=== PATIENT | female | born 1930 | race Caucasian/White ===

== ENCOUNTER 2021-04-01 10:15 | Emergency (ER) | payer OTHER ==
[~2021-04-01] VITALS: Ht 162.6 cm; Wt 100.0 kg
[2021-04-01] MEDS ORDERED: DIPH,PERTUSS(ACELL),TET VAC/PF 0.5 ML IM-VACC ONE (10:30)
[2021-04-01] MEDS ORDERED: SODIUM CHLORIDE FLUSH 10ML SYR IVF ONE (10:30)
[2021-04-01] MEDS ORDERED: CEFAZOLIN PMX 1GM/50ML 50 ML IVPB ONE (10:30)
[2021-04-01] MEDS ORDERED: MORPHINE SULFATE 4 MG/ML, 1ML IVPush PRN (10:30)
[2021-04-01] MEDS ORDERED: ONDANSETRON 2MG/ML, 2ML IVPush ONE (10:30)
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
[2021-04-01] MEDS ORDERED: LIDOCAINE-MPF 1%, 5ML ONE (10:46)
[2021-04-01] MEDS ORDERED: ONDANSETRON 2MG/ML, 2ML ONE (10:46)
[2021-04-01] MEDS ORDERED: MORPHINE SULFATE 4 MG/ML, 1ML ONE (10:47)
[2021-04-01] MEDS ORDERED: CEFAZOLIN PMX 1GM/50ML 50 ML ONE (10:47)
[2021-04-01] MEDS ORDERED: PLEASE ENTER ALLERGIES MC SCH (11:00)
[2021-04-01] MEDS ORDERED: LIDOCAINE 1%-EPI 1:100K, 20ML INFIL ONE (11:00)
--- NOTE | 2021-04-01 11:00 | NUR ---
pt medicated per emar. refused tetnus vacc. stating she had it last year. vss. pt to xray.
[2021-04-01 11:07] LABS: ALBUMIN 3.1 g/dL (3.4-5.0); ANION GAP 5 mmol/L (5-15); CALCIUM 9.4 mg/dL (8.5-10.1); CHLORIDE 110 mmol/L (98-107)
[2021-04-01 11:10] LABS: ALANINE AMINOTRANSFERASE 18 U/L (12-78); ALKALINE PHOSPHATASE 77 U/L (45-117); BILIRUBIN,TOTAL 0.9 mg/dL (0.2-1.0); CREATININE 0.83 mg/dL (0.55-1.02); TOTAL PROTEIN 6.7 g/dL (6.4-8.2)
[2021-04-01 11:11] LABS: BASOPHILS % (AUTO) 1 % (0-1); EOSINOPHILS % (AUTO) 2 % (1-7); LYMPHOCYTES % (AUTO) 23 % (22-44); MEAN CORPUSCULAR HEMOGLOBIN 30.5 pg (27.0-34.8); MEAN CORPUSCULAR HGB CONC 33.1 g/dL (32.4-35.8); MEAN PLATELET VOLUME 8.8 fL (7.4-10.4); MONOCYTES % (AUTO) 8 % (2-9); NEUTROPHILS % (AUTO) 66 % (42-75); PLATELET COUNT 202 x10^3/uL (130-400); RED BLOOD COUNT 4.84 x10^6/uL (3.82-5.3); RED CELL DISTRIBUTION WIDTH 13.9 % (9.6-15.2)
--- NOTE | 2021-04-01 11:32 | NUR ---
GONZALEZ SHAIKHN TO BEDSIDE FOR SUTURE
[2021-04-01] MEDS ORDERED: APIX5TAB PO (11:36)
[2021-04-01] MEDS ORDERED: SIMV10TA18 PO (11:36)
[2021-04-01] MEDS ORDERED: METO25TA91 PO (11:36)
[2021-04-01] MEDS ORDERED: LISI-170 PO (11:36)
[2021-04-01 12:18] VITALS: BP 155/82
--- NOTE | 2021-04-01 12:18 | NUR ---
PT FINISHING UP GETTING SUTURES. VSS. MOORE.
--- NOTE | 2021-04-01 13:05 | NUR ---
Patient AND Caregiver given discharge instructions and they have confirmed that they understand the instructions. Patient ambulatory with steady gait. NAD, all questions answered appropriately, denies additional needs at this time. No personal belongings left in room after discharge.
[2021-04-02] MEDS ORDERED: CEPH-376 PO (14:27)
== END 2021-04-01 13:06 | disposition home or self-care (01) ==
LOC: ED 12:50
DX: S51.812A Laceration without foreign body of left forearm, initial encounter (principal); Y93.89 Activity, other specified; W18.30XA Fall on same level, unspecified, initial encounter; Y92.009 Unspecified place in unspecified non-institutional (private) residence as the place of occurrence of the external cause; Y99.8 Other external cause status
CPT/HCPCS: 12005; 36415; 73090; 80053; 85025; 93005; 96365; 96375; 99285; J0690; J2270; J2405

== ENCOUNTER 2021-04-01 14:32 | Observation (INO) | payer OTHER ==
[~2021-04-01] VITALS: Ht 162.6 cm; Wt 86.2 kg
[~2021-04-01 14:32] MED LIST: APIX5TAB PO; LISI-170 PO; METO25TA91 PO; SIMV10TA18 PO
--- NOTE | 2021-04-01 15:06 | NUR ---
DR HARRIS AT BEDSIDE TO KELSI PT
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
[2021-04-01 15:27] LABS: BASOPHILS % (AUTO) 1 % (0-1); EOSINOPHILS % (AUTO) 0 % (1-7); LYMPHOCYTES % (AUTO) 21 % (22-44); MEAN CORPUSCULAR HEMOGLOBIN 30.4 pg (27.0-34.8); MEAN CORPUSCULAR HGB CONC 32.9 g/dL (32.4-35.8); MONOCYTES % (AUTO) 7 % (2-9); NEUTROPHILS % (AUTO) 71 % (42-75); PLATELET COUNT 214 x10^3/uL (130-400); RED BLOOD COUNT 4.59 x10^6/uL (3.82-5.3); RED CELL DISTRIBUTION WIDTH 13.7 % (9.6-15.2)
[2021-04-01] MEDS ORDERED: SODIUM CHLORIDE FLUSH 10ML SYR IVF ONE (15:30)
[2021-04-01] MEDS ORDERED: SODIUM CHLORIDE 0.9% 1,000ML IVBOLUS ONE (15:30)
[2021-04-01 15:38] LABS: ALANINE AMINOTRANSFERASE 16 U/L (12-78); ANION GAP 6 mmol/L (5-15); CALCIUM 9.1 mg/dL (8.5-10.1); CHLORIDE 110 mmol/L (98-107); CREATININE 1.05 mg/dL (0.55-1.02)
--- NOTE | 2021-04-01 15:39 | NUR ---
PT TO CT VIA [facility]
[2021-04-01 15:40] LABS: ALKALINE PHOSPHATASE 71 U/L (45-117); BILIRUBIN,TOTAL 0.7 mg/dL (0.2-1.0); TOTAL PROTEIN 6.3 g/dL (6.4-8.2)
--- NOTE | 2021-04-01 15:46 | NUR ---
PRIOR TO GOING TO CT, PT ASKING "WHAT CAUSES YOU TO...I CANT THINK OF THE WORD. WHEN YOU JUST GWEN FALL AGAINST THE WALL?" FRIEND IVETT STATES "SHE IS TALKING ABOUT VERTIGO. SHE HAS HAD THAT BEFORE." PT BELIEVES SHE MAY HAVE HAD VERTIGO PRIOR TO 1ST TIME HERE TODAY. DISCUSSED WITH DR HARRIS.
--- NOTE | 2021-04-01 15:54 | NUR ---
PT RETURN TO ROOM, CONT SB/SR PER PADILLAOR. IV INFUSING WITHOUT REDNESS/SWELLING. PT RE-WEIGHT ON BED SCALE. PT AWARE OF WAITING FOR TEST RESULTS.
[2021-04-01] MEDS ORDERED: SODIUM CHLORIDE FLUSH 10ML SYR IVF PRN (16:30)
--- NOTE | 2021-04-01 16:31 | NUR ---
PT STATES "FEELING BETTER" DR HARRIS AT BEDSIDE TO RE-EVAL PT. PT TO BE INPATIENT. PT AGREEABLE. WILL CALL PT ZAINAB HILL
--- NOTE | 2021-04-01 16:36 | NUR ---
RICK HILL [phone], IVETT (FAMILY FRIEND) [phone]
--- NOTE | 2021-04-01 16:58 | NUR ---
PT DESAT TO 88% IB SANJEEV PLACED ON 2L NC. SPOKE WITH GRANDDAUGHTER RICK, AWARE OF PT TO BE ADMITTED INPATIENT. PT HAS SOME DEMENTIA AND DOES "SEEM TO GET WORSE AT NIGHT" PER GRANDDAUGHTER "THE VERTIGO WAS SEVERAL YEARS AGO AND SHE SEEMS TO REVERT BACK TO IT" PER IVTET FAMILY FRIEND PT HAS SOME "SLEEP APNEA" DOES NOT WEAR OXYGEN AT HOME. PT MOVED TO ROOM 26. ADMITTING MD AT BEDSIDE.
--- NOTE | 2021-04-01 17:04 | NUR ---
RECEIVED REPORT FROM ADI HODGE. PT RESTING ON [place]. OSCAR. MONITORS IN PLACE. VSS. [facility] AT BEDSIDE FOR ADMISSION.
[2021-04-01] MEDS ORDERED: SENNA/DOCUSATE TABLET PO PRN (17:30)
[2021-04-01] MEDS ORDERED: ONDANSETRON 2MG/ML, 2ML IVPush PRN (17:30)
[2021-04-01] MEDS ORDERED: LACTATED RINGERS 1,000 ML IV SCH (17:30)
[2021-04-01] MEDS ORDERED: POLYETHYLENE GLYCOL 17 GM PACKET PO PRN (17:30)
[2021-04-01] MEDS ORDERED: ONDANSETRON ODT 4 MG PO PRN (17:30)
--- NOTE | 2021-04-01 18:01 | NUR ---
PT RESTING ON GURNEY. NADN. ARROYO.
--- NOTE | 2021-04-01 18:47 | NUR ---
PT PROVIDED W/ MEAL TRAY. REPOSITIONED FOR COMFORT.
--- NOTE | 2021-04-01 18:53 | NUR ---
PT RESTING ON GURNEY. NADN. ARROYO.
--- NOTE | 2021-04-01 19:23 | NUR ---
THROUGHPUT RN NOTE: PT'S INSURANCE NOT CONTRACTED THROUGH [facility] [place] ONLY. [facility] CONTACTED, PT DENIED BY [facility] [place] IS AT CAPACITY.
--- NOTE | 2021-04-01 19:52 | NUR ---
PT RESTING ON GURNEY. NADN. ARROYO.
--- NOTE | 2021-04-01 20:35 | NUR ---
HOSPITAL BED ORDERED FOR PT.
[2021-04-01] MEDS ORDERED: CEPHALEXIN 500 MG CAPSULE ONE (20:39)
[2021-04-01] MEDS: CEPHALEXIN 500 MG CAPSULE PO SCH (20:43)
--- NOTE | 2021-04-01 21:01 | NUR ---
PT MOVED FROM [facility] TO HOSPITAL BED. PT RAFY CAPPS. OSCAR. REPORT GIVEN TO ADI SHAH.
--- NOTE | 2021-04-01 21:02 | NUR ---
REPORT RECEIVED FROM LILY JOSHI. ASSUMING CARE AT THIS TIME. PT TRANSFERRED TO HOSPITAL BED. PT CONNECTED TO ALL MONITORING. CALL LIGHT IN REACH. AWAITING ADMIT BED.
--- NOTE | 2021-04-01 22:14 | NUR ---
REPORT GIVEN TO JIM JOSHI. PT RTG TO ROOM [id number]
[2021-04-01 22:45] VITALS: BP 109/65
[2021-04-01] MEDS: ACETAMINOPHEN 325 MG TABLET PO PRN (23:38)
[2021-04-02 00:35] VITALS: BP 102/65
[2021-04-02 01:14] VITALS: BP 102/57
[2021-04-02 01:16] VITALS: BP 114/68
[2021-04-02 01:19] VITALS: BP 121/79
[2021-04-02 05:48] LABS: BASOPHILS % (AUTO) 0 % (0-1); EOSINOPHILS % (AUTO) 2 % (1-7); LYMPHOCYTES % (AUTO) 36 % (22-44); MEAN CORPUSCULAR HEMOGLOBIN 30.7 pg (27.0-34.8); MEAN CORPUSCULAR HGB CONC 33.1 g/dL (32.4-35.8); MEAN PLATELET VOLUME 9.2 fL (7.4-10.4); MONOCYTES % (AUTO) 10 % (2-9); NEUTROPHILS % (AUTO) 52 % (42-75); PLATELET COUNT 169 x10^3/uL (130-400); RED BLOOD COUNT 3.98 x10^6/uL (3.82-5.3); RED CELL DISTRIBUTION WIDTH 14.1 % (9.6-15.2)
[2021-04-02 05:49] LABS: CHLORIDE 111 mmol/L (98-107)
[2021-04-02 06:09] LABS: ALANINE AMINOTRANSFERASE 13 U/L (12-78); ALBUMIN 2.3 g/dL (3.4-5.0); ALKALINE PHOSPHATASE 64 U/L (45-117); ANION GAP 3 mmol/L (5-15); BILIRUBIN,TOTAL 0.4 mg/dL (0.2-1.0); CALCIUM 8.9 mg/dL (8.5-10.1); CREATININE 0.83 mg/dL (0.55-1.02); TOTAL PROTEIN 5.3 g/dL (6.4-8.2)
[2021-04-02] MEDS: CEPHALEXIN 500 MG CAPSULE PO SCH ×2 (08:35→15:25)
[2021-04-02 11:20] VITALS: BP 116/66
[2021-04-02] MEDS ORDERED: CEPH-376 PO (14:27)
[2021-04-02] MEDS: ACETAMINOPHEN 325 MG TABLET PO PRN (15:25)
[2021-04-02 15:42] VITALS: BP 129/70
== END 2021-04-02 22:33 | disposition home or self-care, planned readmission (81) ==
LOC: ED 15:02 → INTOOBSV 17:14 → EDIP 17:14 → 4WST 22:31
PROVIDERS: ADMIT Family Medicine; ATTEND Family Medicine
DX: I95.9 Hypotension, unspecified (principal); S51.812D Laceration without foreign body of left forearm, subsequent encounter; R29.6 Repeated falls; I48.0 Paroxysmal atrial fibrillation; I10 Essential (primary) hypertension; E78.5 Hyperlipidemia, unspecified; F03.90 Unspecified dementia, unspecified severity, without behavioral disturbance, psychotic disturbance, mood disturbance, and anxiety; D68.9 Coagulation defect, unspecified; Z79.899 Other long term (current) drug therapy; Z90.710 Acquired absence of both cervix and uterus; Z79.01 Long term (current) use of anticoagulants; Z86.73 Personal history of transient ischemic attack (TIA), and cerebral infarction without residual deficits; W01.0XXD Fall on same level from slipping, tripping and stumbling without subsequent striking against object, subsequent encounter
CPT/HCPCS: 36415; 70450; 71045; 80053; 85025; 93005; 96360; 96361; 97162; 99285; G0378; J7030; J7120